=== PATIENT | male | born 1975 | race Caucasian/White ===

== ENCOUNTER 2022-08-26 09:27 | Day surgery (SDC) | payer OTHER ==
[2022-08-22 14:02] VITALS: BMI 32.5
[~2022-08-26 09:27] MED LIST: ALPRAZolam 0.25 MG TAB PO PRN; ALPRAZolam 0.5 MG TAB PO PRN; ASPIRIN 325 MG TAB PO ONE; ATORVASTATIN 80 MG TAB PO ONE; HEPARIN SODIUM,PORCINE 10,000 UNIT in SODIUM CHLORIDE 0.9% 1,000 ML IRRIGATION PRN; HEPARIN SODIUM,PORCINE 2,500 UNIT in SODIUM CHLORIDE 0.9% 250 ML IRRIGATION PRN; NITROGLYCERIN SL TABS 0.4 MG TAB SUBLINGUAL PRN; SODIUM CHLORIDE 0.9% 1,000 ML in EMPTY BAG 1 BAG IV SCH
[2022-08-26 10:00] VITALS: TEMP 97.7
[2022-08-26] MEDS ORDERED: VERAPAMIL 2.5 MG/ML 2 ML AMP ONE (10:12)
[2022-08-26] MEDS ORDERED: fentaNYL (PF) 50 MCG/ML 2 ML AMP ONE (10:52)
[2022-08-26] MEDS ORDERED: HEPARIN SODIUM 1,000 UN/ML (10ML VL) ONE (10:52)
[2022-08-26] MEDS: MIDAZOLAM 2 MG/2 ML VIAL IV ONE ×2 (11:00→11:28)
[2022-08-26] MEDS: fentaNYL (PF) 50 MCG/ML 2 ML AMP IV ONE ×2 (11:00→11:09)
[2022-08-26] MEDS ORDERED: LIDOCAINE 1% INJ 10MG/ML (5 ML VIAL-PF) SQ ONE (11:02)
[2022-08-26] MEDS: VERAPAMIL SYRINGE (5 MG/10 ML) INTRAARTER ONE ×2 (11:03→11:20)
[2022-08-26] MEDS ORDERED: HEPARIN SODIUM 1,000 UN/ML (10ML VL) IV ONE (11:09)
[2022-08-26] MEDS ORDERED: IOPAMIDOL-370 125ML BTL INJ ONE (11:32)
[2022-08-26 14:24] VITALS: RESP 16
[2022-08-26 14:25] VITALS: BP 138/91; PULSE 62
--- NOTE | 2022-08-26 22:41 | CC ---
CARDIAC CATHETERIZATION REPORT INDICATIONS: Chest pain with abnormal stress test. INDICATIONS FOR PROCEDURE: This is a 47-year-old gentleman who presented with pericardial chest pressure, EKG changes and was evaluated at an outside facility, had a stress test that showed 1.5 mm to segment depression in the inferolateral leads. After my initial evaluation, I talked to him about his treatment options including an alternate stress test. The patient insisted on going to a cardiac cath for definitive diagnosis. The patient was explained of risks, benefits and alternatives and understood and accepted. DESCRIPTION OF PROCEDURE: After obtaining informed consent, left heart catheterization and coronary angiogram were performed via the right radial artery. The right coronary artery was engaged using a 3.5 Sailaja catheter. The left coronary artery was engaged using a Carlos Eduardo catheter as we were unsuccessful using 3, 3.5 and size 4 Sailaja catheters. The left ventricular hemodynamics were obtained using a pigtail catheter. The patient tolerated the procedure well without any obvious immediate complications. The patient received moderate conscious sedation. Total sedation time was 32 minutes. Right radial artery access was obtained using Seldinger technique. A 6-Bruneian sheath was placed, and catheters and wires were floated into the ascending aorta under fluoroscopic guidance. The patient received a total of 10 mg of verapamil and 5000 units of heparin. A TR band was placed for hemostasis at the end of the procedure as per protocol. FINDINGS: Right coronary artery is a small nondominant vessel and is free of stenosis. Left main coronary artery is a normal-sized vessel and is free of stenosis. Divides into left anterior descending coronary artery and circumflex coronary artery. LAD and its branches, circumflex coronary artery and its branches are free of significant stenosis. Left ventricular end-diastolic pressure is around 16 mm. There is no significant gradient across the aortic valve. CONCLUSION: Normal coronary arteries. PLAN: I reviewed angiographic data with the patient and told him that his chest pain is probably noncardiac in origin and the stress test is a false-positive stress test. MMODL / IJN: [id number] /
== END 2022-08-26 14:46 | disposition home or self-care (01) ==
LOC: CATHCVL 09:27
PROVIDERS: ATTEND Internal Medicine Cardiovascular Disease
DX: R07.9 Chest pain, unspecified (principal); Z88.8 Allergy status to other drugs, medicaments and biological substances; Z79.899 Other long term (current) drug therapy; Z79.82 Long term (current) use of aspirin
CPT/HCPCS: 93458; C1769; C1894; C1887; J2250; J2001; J3010; J1644; Q9967